=== PATIENT | male | born 1940 | race Caucasian/White ===

== ENCOUNTER 2016-12-09 18:06 | Emergency (ER) | payer OTHER ==
[~2016-12-09] VITALS: Ht 188 cm; Wt 93.0 kg
[~2016-12-09 18:06] MED LIST: NATURAL BP MED
[2016-12-09 18:12] VITALS: BP 149/86; PULSE 76; RESP 17; TEMP 97.8; O2SAT 99
[2016-12-09] MEDS ORDERED: AMLO5TAB2 PO (19:34)
[2016-12-09] MEDS ORDERED: LOSA100T PO (19:34)
--- NOTE | 2016-12-09 19:41 | PD ---
HPI Chief Complaint: Nosebleed Time Seen by Provider: 19:27 Travel History International Travel<30 days: No Contact w/Intl Traveler<30days: No Traveled to known affect area: No History of Present Illness HPI Patient is a 76-year-old male who presents to emergency room with complaints of nosebleed. Reports that he was sitting on his couch today and noticed that his left nostril began to bleed. Patient reports that he held pressure to his nose but reports that the bleeding "wouldn't stop." Reports that bleeding began 30 min prior to arrival to ER and reports that his nose bleed stopped 20 minutes ago. Reports that he has complete resolution of symptoms at this time. Denies trauma to nose, denies picking his nose. Patient reports that he is currently not taking any anticoagulants, reports that he intermittently takes a full dose aspirin when he has pain to his leg. Patient does admit to taking a full his aspirin yesterday. Patient denies a sensation of lightheadedness or dizziness at this time. Patient with no complaints. PFSH Past Medical History Hx Anticoagulant Therapy: Yes (ASPIRIN 325 MG EVERY OTHER DAY.) Hypertension: Yes Migraines: Yes Tetanus Vaccination: > 5 Years Past Surgical History Tonsillectomy: Yes Social History Alcohol Use: No Tobacco Use: No Substance Use: No Allergies-Medications (Allergen,Severity, Reaction): Coded Allergies: Penicillin (Verified Allergy, Intermediate, Rash, 12/09/16) Iodinated Contrast Media (Verified Allergy, Unknown, HIVES, 12/09/16) Reported Meds & Prescriptions Reported Meds & Active Scripts Active Reported Amlodipine (Amlodipine Besylate) 5 Mg Tab 5 Mg PO BID Losartan (Losartan Potassium) 100 Mg Tab 100 Mg PO DAILY Review of Systems General / Constitutional: No: Fever Eyes: No: Visual changes HENT: Positive: Nosebleed, No: Headaches, Lightheadedness, Sore Throat Cardiovascular: No: Chest Pain or Discomfort, Palpitations, Irregular Rhythm Respiratory: No: Cough, Shortness of Breath Gastrointestinal: No: Nausea, Vomiting, Abdominal Pain Genitourinary: No: Dysuria Musculoskeletal: No: Pain Skin: No Rash Neurologic: No: Weakness Psychiatric: No: Depression Endocrine: No: Polydipsia Hematologic/Lymphatic: No: Easy Bruising Physical Exam Narrative GENERAL: No acute distress, nontoxic SKIN: Warm and dry. HEAD: Atraumatic. Normocephalic. EYES:. No injection or drainage. ENT: Patient with dried blood to left nares with no obvious bleeding at this time. Mucous membranes pink and moist. No blood in the posterior pharynx NECK: Trachea midline. No JVD. CARDIOVASCULAR: Regular rate and rhythm. No murmur appreciated. RESPIRATORY: No accessory muscle use. Clear to auscultation. Breath sounds equal bilaterally. GASTROINTESTINAL: Abdomen soft, non-tender, nondistended. Hepatic and splenic margins not palpable. MUSCULOSKELETAL: No obvious deformities. No clubbing. No cyanosis. No edema. NEUROLOGICAL: Awake and alert. . Normal speech. PSYCHIATRIC: Appropriate mood and affect; insight and judgment normal. Data Data Last Documented VS Vital Signs Date Time Temp Pulse Resp B/P Pulse Ox O2 Delivery O2 Flow Rate FiO2 12/09/16 20:11 70 16 145/87 96 Room Air 12/09/16 18:12 97.8 Orders Complete Blood Count With Diff (12/09/16 19:34) Prothrombin Time / Inr (Pt) (12/09/16 19:34) Act Partial Throm Time (Ptt) (12/09/16 19:34) Labs Laboratory Tests Test 12/09/16 20:05 White Blood Count 6.0 TH/MM3 Red Blood Count 4.65 MIL/MM3 Hemoglobin 14.0 GM/DL Hematocrit 41.7 % Mean Corpuscular Volume 89.7 FL Mean Corpuscular Hemoglobin 30.1 PG Mean Corpuscular Hemoglobin 33.6 % Concent Red Cell Distribution Width 13.3 % Platelet Count 217 TH/MM3 Mean Platelet Volume 7.3 FL Neutrophils (%) (Auto) 74.0 % Lymphocytes (%) (Auto) 14.4 % Monocytes (%) (Auto) 7.1 % Eosinophils (%) (Auto) 3.8 % Basophils (%) (Auto) 0.7 % Neutrophils # (Auto) 4.5 TH/MM3 Lymphocytes # (Auto) 0.9 TH/MM3 Monocytes # (Auto) 0.4 TH/MM3 Eosinophils # (Auto) 0.2 TH/MM3 Basophils # (Auto) 0.0 TH/MM3 CBC Comment DIFF FINAL Differential Comment Prothrombin Time 11.2 SEC Prothromb Time International 1.0 RATIO Ratio Activated Partial 29.2 SEC Thromboplast Time MDM Medical Decision Making Medical Screen Exam Complete: Yes Emergency Medical Condition: Yes Interpretation(s) Vital Signs Date Time Temp Pulse Resp B/P Pulse Ox O2 Delivery O2 Flow Rate FiO2 12/09/16 18:12 97.8 76 17 149/86 99 Differential Diagnosis Epistasis Narrative Course Patient is a 76-year-old male who presents to emergency room with complaints of epistasis to the left nares. Patient reports that symptoms began 30 minutes prior to arrival to emergency room, reports that he currently has complete resolution of symptoms this time. Patient reports that he feels fine at this time, denies sensation of lightheadedness or dizziness. VSS Patient has resolution of nosebleed at this time. Patient currently not on any anticoagulants although he does take aspirin for pain and did take a dose of aspirin yesterday. Will obtain CBC and check INR. Will monitor patient as patient currently has resolution of symptoms 2012: patient re-evaluated, pt well appearing, no signs of epistasis at this time CBC WBC 6.0 Hemoglobin 14 Hematocrit 41.7 Platelets 217 INR 1.0 Patient with complete resolution of epistasis in the emergency room. Encourage patient to apply Vaseline to left nares pink and keep nares moist. We'll have patient follow up with ENT and return to ER as needed. Diagnosis Primary Impression: Epistaxis Referrals: Tu Oliveira MD Patient Instructions: General Instructions Additional Instructions: Please return to the emergency room if symptoms return Please follow-up with ENT physician as needed Disposition: 01 DISCHARGE HOME Condition: Stable Prabha Fleming DO Dec 09, 2016 19:41 Prabha Fleming DO Dec 09, 2016 19:41
[2016-12-09 20:11] VITALS: BP 145/87; PULSE 70; RESP 16; O2SAT 96
[2016-12-09 20:15] LABS: AUTOMATED NEUTROPHIL # 4.5 TH/MM3 (1.8-7.7); BASOPHIL % 0.7 % (0.0-2.0); EOSINOPHIL # 0.2 TH/MM3 (0-0.4); EOSINOPHIL % 3.8 % (0.0-4.0); HEMATOCRIT 41.7 % (39.0-51.0); HEMO FLAGS DIFF FINAL; LYMPH % 14.4 % (9.0-44.0); LYMPHOCYTE # 0.9 TH/MM3 (1.0-4.8); MEAN CELL VOLUME 89.7 FL (80.0-100.0); MEAN CORPUSCULAR HEMOGLOBIN 30.1 PG (27.0-34.0); MEAN CORPUSCULAR HGB CONC 33.6 % (32.0-36.0); MONO % 7.1 % (0.0-8.0); PLATELET COUNT 217 TH/MM3 (150-450); RED BLOOD COUNT 4.65 MIL/MM3 (4.50-5.90); RED CELL DISTRIBUTION WIDTH 13.3 % (11.6-17.2)
[2016-12-09 20:33] LABS: APTT (PATIENT) 29.2 SEC (24.3-30.1); PROTHROMBIN TIME - PATIENT 11.2 SEC (9.8-11.6)
== END 2016-12-09 21:15 | disposition home or self-care (01) ==
LOC: PHED 18:06 → PHEFT 21:15
DX: Z79.82 Long term (current) use of aspirin (principal); I10 Essential (primary) hypertension; R04.0 Epistaxis
CPT/HCPCS: 85025; 85610; 85730; 99283